=== PATIENT | male | born 1995 | race Two or more races ===

== ENCOUNTER 2018-04-15 02:11 | Emergency (ER) | payer SELFPAY ==
--- NOTE | 2018-04-15 03:07 | Emergency Room Report ---
History of Present Illness General Chief Complaint: To Be Triaged Medical Decision Making ER Course patient left without being triaged or seen Status: other Disposition: LEFT W/OUT BEING SEEN Condition: Unknown Referrals: NOT CHOSEN IPA/MD,REFERRING (PCP) Ilir Mantilla DO Apr 15, 2018 03:07
== END 2018-04-15 02:22 | disposition left against medical advice (07) ==
LOC: EMR 02:22
DX: Z53.21 Procedure and treatment not carried out due to patient leaving prior to being seen by health care provider (principal)